=== PATIENT | female | born 1935 | race Caucasian/White ===

== ENCOUNTER → 2018-07-02 | Day surgery (SDC) | payer MEDICARE, OTHER ==
[~2018-07-02] MED LIST: Lactated Ringers 1,000 ML IV SCH; Propofol 200 MG/20 ML SDV IV ONE
--- NOTE | 2018-07-02 10:27 | OR ---
DATE OF OPERATION: 07/02/2018 PREOPERATIVE DIAGNOSIS: 1. HEME-POSITIVE STOOL. 2. WEIGHT LOSS. POSTOPERATIVE DIAGNOSIS: 1. HEME-POSITIVE STOOL. 2. WEIGHT LOSS. SURGEON: Tl Nunez MD PROCEDURE: 1. EGD WITH BIOPSY X4, IRA. 2. FULL-LENGTH COLONOSCOPY. ANESTHESIA: DAY CARE HOME PROVIDER due to advanced age and hyperthyroidism. COMPLICATIONS: None. SPECIMEN: 1. Antral biopsy x2. 2. Fundal biopsy x2. 3. IRA. FINDINGS: 1. Full-length EGD. 2. Diffuse hemorrhagic gastritis. 3. Dxpo-cu-amcigduz sized hiatal hernia without esophagitis or stricturing. 4. Full-length colonoscopy. 5. Moderate sigmoid diverticulosis. 6. Significant internal hemorrhoids. RECOMMENDATIONS: The patient should be placed on proton pump therapy and treated appropriately for her gastritis with close followup with Lety Torres. INDICATIONS: The patient apparently has been having some issues with heme- positive stool and anemia. GI recommended upper and lower endoscopy. DESCRIPTION OF PROCEDURE: The patient was prepped and draped, placed in left lateral decubitus position. A lubricated Olympus gastroscope was inserted over a bit, advanced to the cricopharyngeus area, and easily intubated into the esophagus. Esophageal lining was benign in its entire course. The Z-line was crisp and sharp around 36 cm. Zptn-sl-bhoituod sized hiatal hernia was seen with no spontaneous reflux visualized. There was no distal esophagitis, stricturing, ulceration, or De Leon's changes. The scope was advanced into the stomach through the pylorus and into the second portion of the duodenum. This and the duodenal bulb were unremarkable. The scope was brought back into the stomach and retroflexed. The upper fundus and cardia showed signs of gastritis without any acute bleeding, but appeared to be a resolving hemorrhagic gastritis which extended diffusely to the pylorus. We ended up doing 4 biopsies, 2 in the antrum and 2 in the fundus along with a CLOtest. No other polyps, masses, or lesions were seen. Air was then suctioned from the stomach. The scope was removed without complication. A lubricated Olympus colonoscope was then inserted and relatively easily advanced to the cecum. We were able to directly visualize the ileocecal valve and appendiceal orifice. The bowel prep was fine. Upon withdrawal of the scope, right transverse descending colons were completely unremarkable. The patient has pzny-hk-inmpoctu sigmoid diverticular disease without any inflammatory changes. No active bleeding. There were no signs of polyps, mass, ulceration, or colitis. The rectal vault was benign. Retroflexion showed significant internal hemorrhoids, but no active bleeding. Air was then suctioned, scope removed without complication. MANJU/PEMA /[id number]
== END ==
LOC: CC.SDS 07:39
PROVIDERS: ATTEND Family Medicine
DX: R19.5 Other fecal abnormalities (principal); R63.4 Abnormal weight loss; Z68.23 Body mass index [BMI] 23.0-23.9, adult; K29.50 Unspecified chronic gastritis without bleeding; B96.81 Helicobacter pylori [H. pylori] as the cause of diseases classified elsewhere; K44.9 Diaphragmatic hernia without obstruction or gangrene; K64.8 Other hemorrhoids; K57.30 Diverticulosis of large intestine without perforation or abscess without bleeding; J44.9 Chronic obstructive pulmonary disease, unspecified; I48.91 Unspecified atrial fibrillation; E05.90 Thyrotoxicosis, unspecified without thyrotoxic crisis or storm; Z79.899 Other long term (current) drug therapy
CPT/HCPCS: 43239; 45378; 87081; J2704; J7120; 00813; 88305

== ENCOUNTER 2021-05-03 09:52 | Inpatient (IN) | payer MEDICARE, OTHER ==
[2021-05-03] MEDS ORDERED: Temazepam 15 MG Cap PO PRN (14:15)
[2021-05-03] MEDS ORDERED: Cyclobenzaprine 10 MG Tab PO PRN (14:15)
[2021-05-03] MEDS ORDERED: Ondansetron 4 MG Tab.DIS PO PRN (14:15)
[2021-05-03] MEDS ORDERED: Non-Formulary Medication 1 Each (Methimazole [Methimazole] 5 MG Tablet) PO SCH (14:30)
[2021-05-03] MEDS ORDERED: Polyvinyl Alcohol 1.4% Ophth Soln 15 ML Bottle EYEBOTH PRN (14:59)
[2021-05-03] MEDS: Furosemide 40 MG Tab PO SCH (15:00)
[2021-05-03] MEDS: Acetaminophen/HYDROcodone 325-5 MG Tab PO PRN (15:00)
[2021-05-03] MEDS: Potassium Chloride 10 MEQ Tab.ER PO SCH (17:48)
[2021-05-03] MEDS: Calcium Carbonate/Vitamin D3 1250 MG-5 MCG Tab PO SCH (19:41)
[2021-05-04] MEDS: Acetaminophen/HYDROcodone 325-5 MG Tab PO PRN ×3 (05:23→19:59)
[2021-05-04] MEDS: Pantoprazole 40 MG Tab.CR PO SCH (06:12)
[2021-05-04] MEDS ORDERED: SELENIUM 200 MCG PO SCH (08:00)
[2021-05-04] MEDS: Citalopram 10 MG Tab PO SCH (09:02)
[2021-05-04] MEDS: Metoprolol Succinate 25 MG Tab.ER PO SCH (09:02)
[2021-05-04] MEDS: amLODIPine 10 MG Tab PO SCH (09:03)
[2021-05-04] MEDS: Losartan 100 MG Tab PO SCH (09:03)
[2021-05-04] MEDS: Furosemide 40 MG Tab PO SCH ×2 (09:04→16:46)
[2021-05-04] MEDS: Potassium Chloride 10 MEQ Tab.ER PO SCH ×2 (09:04→16:46)
[2021-05-04] MEDS: Tiotropium Inhaler 18 MCG Inhalation Powder Cap Kit of 5 INH SCH (09:05)
[2021-05-04] MEDS: Warfarin 5 MG Tab PO SCH (12:03)
[2021-05-04] MEDS: Calcium Carbonate/Vitamin D3 1250 MG-5 MCG Tab PO SCH (19:09)
[2021-05-05] MEDS: Pantoprazole 40 MG Tab.CR PO SCH (06:24)
--- NOTE | 2021-05-05 06:35 | PCM.HP.2 ---
H&P History of Present Illness - General Date of Service: 05/03/21 Admit Problem/Dx: Admission Diagnosis/Problem Admission Diagnosis/Problem Status post right hip replacement Source of Information: Patient History Limitations: Reports: No Limitations - History of Present Illness Initial Comments - Free Text/Narative: Rae is an 86 year old female admitted for strengthening following a right [place] [facility] [facility] [place] 3 days following surgery. is ambulating with walk, weight bear as tolerated. Doing very well with stand by assist. Has chronic cough due to COPD. denies chest pain, shortness of breath. Has had good appetite. No bowel or bladder concerns. Bandage was changed earlier today and patient relates wound is "looking good". Duration of Symptoms: Reports: Day(s): Location: Reports: Lower Extremity, Right Quality: Reports: Ache Severity: Mild Improves with: Reports: Medication Worsens with: Reports: Movement Associated Symptoms: Reports: Cough, Weakness. Denies: Confusion, Chest Pain, Diaphoresis, Fever/Chills, Loss of Appetite, Nausea/Vomiting, Shortness of Breath right hip Pain Score (Numeric/FACES): 5 - Related Data Allergies/Adverse Reactions: Allergies Allergy/AdvReac Type Severity Reaction Status Date / Time No Known Allergies Allergy Verified 07/02/18 08:05 Home Medications: Home Meds Calcium Carbonate [Calcium] 600 mg PO BEDTIME 10/15/17 [History] Pantoprazole Sodium 40 mg PO DAILY 10/15/17 [History] Potassium Chloride [K-Tab ER] 40 meq PO BID 10/15/17 [History] Tiotropium [place] [Spiriva Respimat] 2 puff INH DAILY 10/15/17 [History] amLODIPine Besylate [Amlodipine Besylate] 10 mg PO DAILY 10/15/17 [History] Citalopram Hydrobromide [Celexa] 10 mg PO DAILY 06/30/18 [History] Furosemide [Lasix] 40 mg PO BID 06/30/18 [History] Acetaminophen [Tylenol Arthritis Pain] 650 - 1,300 mg PO Q8HR PRN 05/03/21 [History] Carboxymethylcellulose Sodium 1 drop EYEBOTH DAILY PRN 05/03/21 [History] Losartan [Cozaar] 50 mg PO DAILY 05/03/21 [History] Metoprolol Succinate [Toprol Xl] 50 mg PO DAILY 10/22/21 [History] Selenium 200 mcg PO DAILY 05/03/21 [History] methIMAzole [Methimazole] 5 mg PO ASDIRECTED 05/03/21 [History] Past Medical History HEENT History: Reports: Cataract Cardiovascular History: Reports: High Cholesterol, Hypertension Respiratory History: Reports: COPD Gastrointestinal History: Reports: GERD Endocrine/Metabolic History: Reports: Hypokalemia - Past Surgical History HEENT Surgical History: Reports: Eye Surgery GI Surgical History: Reports: Appendectomy, Cholecystectomy Female Surgical History: Reports: Hysterectomy Musculoskeletal Surgical History: Reports: Hip Replacement Social & Family History - Tobacco Use Tobacco Use Status *Q: Former Tobacco User H&P Review of Systems - Review of Systems: Review Of Systems: See Below General: Reports: Weakness. Denies: Fever, Chills, Malaise, Fatigue HEENT: Reports: Rhinitis. Denies: Sinus Congestion, Sore Throat Pulmonary: Reports: Cough. Denies: Shortness of Breath, Wheezing Cardiovascular: Denies: Chest Pain, Edema, Lightheadedness Gastrointestinal: Denies: Abdominal Pain, Constipation, Diarrhea, Nausea, Vomiting Genitourinary: Reports: No Symptoms Musculoskeletal: Reports: Joint Pain Skin: Reports: Other (Incision) Psychiatric: Reports: No Symptoms Neurological: Reports: Weakness Exam - Exam Exam: See Below - Vital Signs Vital Signs: Last Vital Signs Temp 98.9 F 05/04/21 20:00 Pulse 87 05/04/21 20:00 Resp 20 05/04/21 20:00 BP 125/50 L 05/04/21 20:00 Pulse Ox 98 05/04/21 20:00 Weight: 187 lb 4.8 oz - Exam General: Alert, Oriented HEENT: Conjunctiva Clear, Mucosa Moist & [place], Posterior Pharynx Clear Neck: Supple Lungs: Normal Respiratory Effort, Decreased Breath Sounds Cardiovascular: Irregular Rhythm GI/Abdominal Exam: Normal Bowel Sounds, Soft, Non-Tender Back Exam: Normal Inspection Extremities: Limited Range of Motion, Other (tender to right lower extremity) Skin: Incision (bandage intact to right hip, mild redness to skin) Neuro Extensive - Mental Status: Alert, Oriented x3 - Patient Data Lab Results Last 24 hrs: Laboratory Results - last 24 hr 05/04/21 Range/Units 07:10 PT 12.7 H (9.7-12.3) SEC INR 1.18 (0.92-1.18) Sepsis Event Note - Evaluation Sepsis Screening Result: No Definite Risk - Focused Exam Vital Signs: Vital Signs Temp Pulse Resp BP Pulse Ox 05/04/21 20:00 98.9 F 87 20 125/50 L 98 - Problem List (1) Status post hip replacement SNOMED Code(s): 470439912, 333716603, 281053350 ICD Code: Z96.649 - PRESENCE OF UNSPECIFIED ARTIFICIAL HIP JOINT Status: Acute Priority: High Current Visit: Yes Qualifiers: Laterality: right Qualified Code(s): Z96.641 - Presence of right artificial hip joint Problem List Initiated/Reviewed/Updated: Yes Orders Last 24hrs: Active Orders 24 hr Category Date Time Status INR,PT,PROTHROMBIN TIME [COAG] Routine Lab 05/06/21 05:11 Ordered Citalopram [Celexa] Med 05/04/21 08:00 Active 10 mg PO DAILY Losartan [Cozaar] Med 05/04/21 08:00 Active 50 mg PO DAILY Metoprolol Succinate [Toprol XL] Med 05/04/21 08:00 Active 50 mg PO DAILY Pantoprazole [ProTONIX] Med 05/04/21 07:00 Active 40 mg PO ACBREAKFAST Tiotropium [Spiriva HandiHaler] Med 05/04/21 08:00 Active 0 mcg INH DAILY Warfarin [Coumadin] Med 05/04/21 12:00 Active 5 mg PO DAILY@1200 amLODIPine [Norvasc] Med 05/04/21 08:00 Active 10 mg PO DAILY Medication Orders Hydrocodone Bitart/Acetaminophen (Acetaminophen/Hydrocodone 325-5 Mg Tab) 1 - 2 tab PO Q4H PRN PRN Reason: Pain (moderate 4-6) Last Admin: 05/04/21 19:59 Dose: 1 tab Documented by: Admin: 05/04/21 12:03 Dose: 1 tab Documented by: Admin: 05/04/21 05:23 Dose: 1 tab Documented by: Admin: 05/03/21 15:00 Dose: 1 tab Documented by: JACKSON Amlodipine Besylate (Amlodipine 10 Mg Tab) 10 mg PO DAILY KATT Last Admin: 05/04/21 09:03 Dose: 10 mg Documented by: CLAIRE Artificial Tears (Polyvinyl Alcohol 1.4% Ophth Soln 15 Ml Bottle) 0 ml EYEBOTH DAILY PRN PRN Reason: Dry Eyes Calcium Carbonate (Calcium Carbonate/Vitamin D3 1250 Mg-5 Mcg Tab) 1 tab PO BEDTIME [facility] Last Admin: 05/04/21 19:09 Dose: 1 tab Documented by: Admin: 05/03/21 19:41 Dose: 1 tab Documented by: JAMES Citalopram Hydrobromide (Citalopram 10 Mg Tab) 10 mg PO DAILY [facility] Last Admin: 05/04/21 09:02 Dose: 10 mg Documented by: CLAIRE Cyclobenzaprine HCl (Cyclobenzaprine 10 Mg Tab) 10 mg PO BEDTIME PRN PRN Reason: Muscle Spasm - Painful Furosemide (Furosemide 40 Mg Tab) 40 mg PO BIDDIURETIC [facility] Last Admin: 05/04/21 16:46 Dose: 40 mg Documented by: Admin: 05/04/21 09:04 Dose: 40 mg Documented by: Admin: 05/03/21 15:00 Dose: 40 mg Documented by: JACKSON Losartan Potassium (Losartan 100 Mg Tab) 50 mg PO DAILY [facility] Last Admin: 05/04/21 09:03 Dose: 50 mg Documented by: CLAIRE Metoprolol Succinate (Metoprolol Succinate 25 Mg Tab.Er) 50 mg PO DAILY [facility] Last Admin: 05/04/21 09:02 Dose: 50 mg Documented by: CLAIRE Non-Formulary Medication (Methimazole [Methimazole]) 5 mg PO ASDIRECTED [facility] Ondansetron HCl (Ondansetron 4 Mg Tab.Dis) 4 mg PO Q4H PRN PRN Reason: nausea, able to take PO Pantoprazole Sodium (Pantoprazole 40 Mg Tab.Cr) 40 mg PO ACBREAKFAST [facility] Last Admin: 05/05/21 06:24 Dose: 40 mg Documented by: Admin: 05/04/21 06:12 Dose: 40 mg Documented by: JAMES Potassium Chloride (Potassium Chloride 10 Meq Tab.Er) 40 meq PO BIDMEALS [facility] Last Admin: 05/04/21 16:46 Dose: 40 meq Documented by: Admin: 05/04/21 09:04 Dose: 40 meq Documented by: Admin: 05/03/21 17:48 Dose: 40 meq Documented by: CLAIRE Temazepam (Temazepam 15 Mg Cap) 15 mg PO BEDTIME PRN PRN Reason: Sleep Tiotropium [place] (Tiotropium Inhaler 18 Mcg Inhalation Powder Cap Kit Of 5) 0 mcg INH DAILY [facility] Last Admin: 05/04/21 09:05 Dose: 2 puff Documented by: CLAIRE Warfarin Sodium (Warfarin 5 Mg Tab) 5 mg PO DAILY@1200 [facility] Last Admin: 05/04/21 12:03 Dose: 5 mg Documented by: CLAIRE Assessment/Plan Comment:: Right total hip replacement Plan: PT for strengthening. Monitor pain. Wound care with daily dressing changes. - Mortality Measure Prognosis:: Good
[2021-05-05] MEDS: Potassium Chloride 10 MEQ Tab.ER PO SCH ×2 (08:01→16:58)
[2021-05-05] MEDS: Furosemide 40 MG Tab PO SCH ×2 (08:01→16:58)
[2021-05-05] MEDS: amLODIPine 10 MG Tab PO SCH (08:02)
[2021-05-05] MEDS: Metoprolol Succinate 25 MG Tab.ER PO SCH (08:02)
[2021-05-05] MEDS: Acetaminophen/HYDROcodone 325-5 MG Tab PO PRN ×3 (08:03→21:07)
[2021-05-05] MEDS: Citalopram 10 MG Tab PO SCH (08:03)
[2021-05-05] MEDS: Losartan 100 MG Tab PO SCH (08:04)
[2021-05-05] MEDS: Tiotropium Inhaler 18 MCG Inhalation Powder Cap Kit of 5 INH SCH (08:07)
[2021-05-05] MEDS: Warfarin 5 MG Tab PO SCH (12:01)
[2021-05-05] MEDS: Calcium Carbonate/Vitamin D3 1250 MG-5 MCG Tab PO SCH (19:13)
[2021-05-06] MEDS: Acetaminophen/HYDROcodone 325-5 MG Tab PO PRN ×3 (04:58→20:07)
[2021-05-06] MEDS: Pantoprazole 40 MG Tab.CR PO SCH (06:51)
[2021-05-06] MEDS: amLODIPine 10 MG Tab PO SCH (07:50)
[2021-05-06] MEDS: Potassium Chloride 10 MEQ Tab.ER PO SCH ×2 (07:50→17:58)
[2021-05-06] MEDS: Losartan 100 MG Tab PO SCH (07:50)
[2021-05-06] MEDS: Furosemide 40 MG Tab PO SCH ×2 (07:50→17:59)
[2021-05-06] MEDS: Metoprolol Succinate 25 MG Tab.ER PO SCH (07:51)
[2021-05-06] MEDS: Citalopram 10 MG Tab PO SCH (07:51)
[2021-05-06] MEDS: Tiotropium Inhaler 18 MCG Inhalation Powder Cap Kit of 5 INH SCH (07:52)
[2021-05-06] MEDS: SELENIUM 200 MCG PO SCH (11:32)
[2021-05-06] MEDS: Warfarin 5 MG Tab PO SCH (11:32)
[2021-05-06] MEDS ORDERED: Furosemide 40 MG Tab PO ONE (18:00)
[2021-05-06] MEDS: Calcium Carbonate/Vitamin D3 1250 MG-5 MCG Tab PO SCH (20:07)
[2021-05-07] MEDS: Pantoprazole 40 MG Tab.CR PO SCH (06:08)
[2021-05-07] MEDS ORDERED: METHIMAZOLE 5 MG PO SCH (08:00)
[2021-05-07] MEDS: Acetaminophen/HYDROcodone 325-5 MG Tab PO PRN (08:23)
[2021-05-07] MEDS: Furosemide 40 MG Tab PO SCH (08:25)
[2021-05-07] MEDS: Losartan 100 MG Tab PO SCH (08:25)
[2021-05-07] MEDS: amLODIPine 10 MG Tab PO SCH (08:25)
[2021-05-07] MEDS: Potassium Chloride 10 MEQ Tab.ER PO SCH (08:26)
[2021-05-07] MEDS: Metoprolol Succinate 25 MG Tab.ER PO SCH (08:26)
[2021-05-07] MEDS: Citalopram 10 MG Tab PO SCH (08:26)
[2021-05-07] MEDS: SELENIUM 200 MCG PO SCH (08:27)
[2021-05-07] MEDS: Tiotropium Inhaler 18 MCG Inhalation Powder Cap Kit of 5 INH SCH (08:27)
[2021-05-07] MEDS: Warfarin 5 MG Tab PO SCH (13:19)
--- NOTE | 2021-05-07 13:49 | DISCH ---
Discharge from swing bed. ADMISSION DIAGNOSES: Swing bed placement, status post total right hip arthroplasty. DISCHARGE DIAGNOSIS: 1. STATUS POST TOTAL HIP ARTHROPLASTY, RIGHT. 2. HYPERTENSION. 3. DEPRESSION. HISTORY: The patient is an 86-year-old female who underwent elective right total hip arthroplasty without any complication. She was sent to [place] for swing bed for strengthening with PT. HOSPITAL COURSE: The patient did well while here, had no complications, and progressed nicely to the point where she was up and ambulating on her own. Has controlled pain with p.r.n. [place] and has had no complications during her stay. She looks clinically stable for discharge home, and she will follow up with Lety Torres in the next 2 weeks for routine recheck. COMPLICATIONS: During her stay were none. CONSULTATIONS: PT. DISPOSITION: Discharged home. [facility] /[id number]
== END 2021-05-07 13:34 | disposition home or self-care (01) | DRG 561 ==
LOC: CC.MS 11:07 → UNDOADMIN 11:07 → CC.MS 13:27
PROVIDERS: ADMIT Physician Assistant Medical; ATTEND Family Medicine
DX: Z47.1 Aftercare following joint replacement surgery (principal); Z96.641 Presence of right artificial hip joint; I10 Essential (primary) hypertension; F32.A Depression, unspecified; E78.00 Pure hypercholesterolemia, unspecified; J44.9 Chronic obstructive pulmonary disease, unspecified; K21.9 Gastro-esophageal reflux disease without esophagitis; Z87.891 Personal history of nicotine dependence; Z90.49 Acquired absence of other specified parts of digestive tract; Z90.710 Acquired absence of both cervix and uterus; Z79.899 Other long term (current) drug therapy; Z98.49 Cataract extraction status, unspecified eye
CPT/HCPCS: 36415; 85610; 90686; 97110-GP; 97161-GP; A9270-GY; G0008

== ENCOUNTER 2021-06-30 10:15 | Emergency (ER) | payer MEDICARE, OTHER ==
--- NOTE | 2021-06-30 10:50 | EDM.PDOC ---
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) (none) Lower Back Pain Score (Numeric/FACES): 6 - Related Data Allergies Allergy/AdvReac Type Severity Reaction Status Date / Time No Known Allergies Allergy Verified 06/30/21 10:20 Home Meds: Home Meds Calcium Carbonate [Calcium] 600 mg PO BEDTIME 10/15/17 [History] Pantoprazole Sodium 40 mg PO DAILY 10/15/17 [History] Potassium Chloride [K-Tab ER] 40 meq PO BID 10/15/17 [History] Tiotropium [place] [Spiriva Respimat] 2 puff INH DAILY 10/15/17 [History] amLODIPine Besylate [Amlodipine Besylate] 10 mg PO DAILY 10/15/17 [History] Citalopram Hydrobromide [Celexa] 10 mg PO DAILY 06/30/18 [History] Furosemide [Lasix] 40 mg PO BID 06/30/18 [History] Carboxymethylcellulose Sodium 1 drop EYEBOTH DAILY PRN 05/03/21 [History] Losartan [Cozaar] 50 mg PO DAILY 05/03/21 [History] Metoprolol Succinate [Toprol Xl] 50 mg PO DAILY 05/03/21 [History] Selenium 200 mcg PO DAILY 05/03/21 [History] methIMAzole [Methimazole] 5 mg PO ASDIRECTED 05/03/21 [History] Hydrocodone/Acetaminophen [HYDROcodone-Acetaminophen 5-325 MG] 1 each PO Q6HR #30 tab 05/07/21 [Rx] Warfarin [Coumadin] 5 mg PO DAILY@1200 #90 tablet 05/07/21 [Rx] Past Medical History HEENT History: Reports: Cataract Cardiovascular History: Reports: High Cholesterol, Hypertension Respiratory History: Reports: COPD Gastrointestinal History: Reports: GERD Endocrine/Metabolic History: Reports: Hypokalemia - Past Surgical History HEENT Surgical History: Reports: Eye Surgery GI Surgical History: Reports: Appendectomy, Cholecystectomy Female Surgical History: Reports: Hysterectomy Musculoskeletal Surgical History: Reports: Hip Replacement Social & Family History - Family History Family Medical History: No Pertinent Family History - Tobacco Use Tobacco Use Status *Q: Never Tobacco User Second Hand Smoke Exposure: No ED ROS GENERAL - Review of Systems Review Of Systems: Comprehensive ROS is negative, except as noted in HPI. ED EXAM, GENERAL - Physical Exam Exam: See Below Exam Limited By: No Limitations General Appearance: Alert, No Apparent Distress Head: Atraumatic, Normocephalic Neck: Normal Inspection, Supple, Non-Tender, Full Range of Motion Respiratory/Chest: No Respiratory Distress, Lungs Clear, Normal Breath Sounds, No Accessory Muscle Use, Chest Non-Tender Cardiovascular: Normal Peripheral Pulses, Regular Rate, Rhythm, No Edema GI/Abdominal: Normal Bowel Sounds, Soft, Non-Tender, No Distention Back Exam: Other (no cva tenderness) Extremities: Normal Range of Motion, Non-Tender, Normal Capillary Refill Neurological: Alert, Oriented, No Motor/Sensory Deficits Psychiatric: Normal Affect, Normal Mood Skin Exam: Warm, Dry, Intact, Normal Color, No Rash Lymphatic: No Adenopathy Course - Vital Signs Last Recorded V/S: Last Vital Signs Temp 97.1 F 06/30/21 10:27 Pulse 82 06/30/21 10:27 Resp 18 06/30/21 10:27 BP 151/69 H 06/30/21 10:27 Pulse Ox 99 06/30/21 10:27 - Orders/Labs/Meds Orders: Active Orders 24 hr Category Date Time Status CULTURE URINE [RM] Stat Lab 06/30/21 11:06 Received Labs: Laboratory Tests 06/30/21 Range/Units 11:06 Urine Color Light yellow (YELLOW) Urine Appearance Cloudy (CLEAR) Urine pH 5.0 (4.5-8.0) Ur Specific [place] 1.010 (1.003-1.020) Urine Protein Negative (NEGATIVE) mg/dL Urine Glucose (UA) Negative (NEGATIVE) mg/dL Urine Ketones Negative (NEGATIVE) mg/dL Urine Occult Blood Small H (NEGATIVE) Urine Nitrite Negative (NEGATIVE) Urine Bilirubin Negative (NEGATIVE) Urine Urobilinogen 0.2 (0.2-1.0) EU/dL Ur Leukocyte Esterase Large H (NEGATIVE) Urine RBC 5-10 H (0-5) /HPF Urine WBC Packed H (0-5) /HPF Ur Epithelial Cells Rare (NOT SEEN) /HPF Urine Bacteria Many H (NOT SEEN) /HPF Urinalysis Comment Meds: Medications Discontinued Medications Generic Name Dose Route Start Last Admin Trade Name Freq PRN Reason Stop Dose Admin Nitrofurantoin Macrocrystals 1 packet 06/30/21 11:35 Take Home: Nitrofurantoin Monohydrate/Macrocrystalline 100 Mg, 2 Cap Pack PO 06/30/21 11:36 ONETIME ONE - Re-Assessments/Exams Free Text/Narrative Re-Assessment/Exam: 06/30/21 10:49 Attempted to give urine specimen but stated that she missed the collection device. Will give po fluids and wait until she can void again. Departure - Departure Time of Disposition: 11:45 Disposition: Home, Self-Care 01 Condition: Good Clinical Impression: UTI, Urinary tract infectious disease - Discharge Information Instructions: Urinary Tract Infection, Adult, [id number] Forms: ED Department Discharge Additional Instructions: Lots of fluids. Medications as prescribed. Follow up with Primary Care Pr ovider if condition worsens or does not resolve. Sepsis Event Note (ED) - Evaluation Sepsis Screening Result: No Definite Risk - Focused Exam Vital Signs: Vital Signs Temp Pulse Resp BP Pulse Ox 06/30/21 10:27 97.1 F 82 18 151/69 H 99 - Problem List & Annotations (1) UTI (urinary tract infection) SNOMED Code(s): 58672609 Code(s): N39.0 - URINARY TRACT INFECTION, SITE NOT SPECIFIED Status: Acute Current Visit: Yes - Problem List Review Problem List Initiated/Reviewed/Updated: Yes - My Orders Last 24 Hours: My Active Orders 06/30/21 11:06 CULTURE URINE [RM] Stat - Assessment/Plan Last 24 Hours: My Active Orders 06/30/21 11:06 CULTURE URINE [RM] Stat
[2021-06-30] MEDS: Take Home: Nitrofurantoin Monohydrate/Macrocrystalline 100 MG, 2 Cap Pack PO ONE (11:57)
== END 2021-06-30 12:10 | disposition home or self-care (01) ==
LOC: CC.ED 10:15
DX: N39.0 Urinary tract infection, site not specified (principal); I10 Essential (primary) hypertension; J44.9 Chronic obstructive pulmonary disease, unspecified; K21.9 Gastro-esophageal reflux disease without esophagitis; Z79.899 Other long term (current) drug therapy
CPT/HCPCS: 81001; 87086; 87088; 87186; 99284; A9270

== ENCOUNTER 2022-09-28 13:13 | Emergency (ER) | payer MEDICARE, OTHER ==
[2022-09-28] MEDS: Sodium Chloride 0.9% 500 ML IV SCH (15:15)
[2022-09-28] MEDS: Take Home: Ondansetron 4 MG Tab.DIS, 2 Tab Pack PO ONE (16:08)
[2022-09-28 16:26] VITALS: BP 131/54; PULSE 79
== END 2022-09-28 16:27 | disposition home or self-care (01) ==
LOC: CC.ED 13:13
DX: A08.4 Viral intestinal infection, unspecified (principal); I10 Essential (primary) hypertension; J44.9 Chronic obstructive pulmonary disease, unspecified; K21.9 Gastro-esophageal reflux disease without esophagitis; Z79.899 Other long term (current) drug therapy; Z79.01 Long term (current) use of anticoagulants; Z90.49 Acquired absence of other specified parts of digestive tract; Z87.891 Personal history of nicotine dependence; Z20.822 Contact with and (suspected) exposure to COVID-19
CPT/HCPCS: 36415; 80053; 81001; 82150; 83690; 85025; 87086; 87804; 99284; A9270-GY; J7040; U0002

== ENCOUNTER 2023-08-19 18:49 | Emergency (ER) | payer MEDICARE, OTHER ==
[2023-08-19] MEDS: Acetaminophen 500 MG Tab PO STA (21:07)
== END 2023-08-19 21:20 | disposition home or self-care (01) ==
LOC: CC.ED 18:49
DX: S42.212A Unspecified displaced fracture of surgical neck of left humerus, initial encounter for closed fracture (principal); I10 Essential (primary) hypertension; E78.00 Pure hypercholesterolemia, unspecified; J44.9 Chronic obstructive pulmonary disease, unspecified; K21.9 Gastro-esophageal reflux disease without esophagitis; Z90.49 Acquired absence of other specified parts of digestive tract; Z90.710 Acquired absence of both cervix and uterus; Z79.01 Long term (current) use of anticoagulants; Z79.899 Other long term (current) drug therapy; W19.XXXA Unspecified fall, initial encounter
CPT/HCPCS: 29105; 73030-LT; 73060-LT; 99283; A9270-GY

== ENCOUNTER 2024-06-11 15:21 | Emergency (ER) | payer MEDICARE, OTHER ==
[2024-06-11] MEDS ORDERED: Acetaminophen 325 MG Tab PO ONE (16:15)
== END 2024-06-11 17:40 | disposition home or self-care (01) ==
LOC: CC.ED 15:21
DX: S62.316A Displaced fracture of base of fifth metacarpal bone, right hand, initial encounter for closed fracture (principal); I10 Essential (primary) hypertension; K21.9 Gastro-esophageal reflux disease without esophagitis; J44.9 Chronic obstructive pulmonary disease, unspecified; Z90.49 Acquired absence of other specified parts of digestive tract; Z90.710 Acquired absence of both cervix and uterus; Z79.899 Other long term (current) drug therapy; W19.XXXA Unspecified fall, initial encounter
CPT/HCPCS: 29125; 73110-RT; 99283-25

== ENCOUNTER 2024-07-08 15:34 | Emergency (ER) | payer MEDICARE, OTHER ==
[2024-07-08] MEDS: Lidocaine 4% 1 each Patch TOP STA (16:40)
== END 2024-07-08 16:49 | disposition home or self-care (01) ==
LOC: CC.ED 15:34
DX: S20.211A Contusion of right front wall of thorax, initial encounter (principal); I10 Essential (primary) hypertension; J44.9 Chronic obstructive pulmonary disease, unspecified; K21.9 Gastro-esophageal reflux disease without esophagitis; Z90.49 Acquired absence of other specified parts of digestive tract; Z90.710 Acquired absence of both cervix and uterus; Z96.649 Presence of unspecified artificial hip joint; Z79.01 Long term (current) use of anticoagulants; Z79.899 Other long term (current) drug therapy; W19.XXXA Unspecified fall, initial encounter
CPT/HCPCS: 71101-RT; 99283; A9270-GY

== ENCOUNTER 2024-07-10 07:40 | Emergency (ER) | payer MEDICARE, OTHER ==
[2024-07-10 08:01] LABS: BASOPHILS ABSOLUTE AUTO 0.01 10^3/uL (0.00-0.50); BASOPHILS PERCENT AUTO 0.2 % (0-1); EOSINOPHILS ABSOLUTE AUTO 0.29 10^3/uL (0.00-1.50); HEMATOCRIT 34.4 % (37.0-47.0); IMMATURE GRAN ABSOLUTE AUTO 0.05 10^3/uL (0.00-0.49); LYMPHOCYTES ABSOLUTE AUTO 1.34 10^3/uL (0.60-5.00); LYMPHOCYTES PERCENT AUTO 27.5 % (24-44); MEAN CORPUSCULAR HEMOGLOBIN 29.4 pg (27.0-32.0); MONOCYTES ABSOLUTE AUTO 0.75 10^3/uL (0.00-1.50); MONOCYTES PERCENT AUTO 15.4 % (0-10); NEUTROPHILS ABSOLUTE AUTO 2.43 x10^3/uL (1.80-8.00); NEUTROPHILS PERCENT AUTO 49.9 % (41-71); PLATELET COUNT,PLT 224 10^3/uL (150-400); RED BLOOD CELL COUNT 3.74 x10^6/uL (4.00-5.50); WHITE BLOOD CELL COUNT,WBC 4.9 10^3/uL (4.0-11.0)
[2024-07-10 08:44] LABS: ALANINE AMINOTRANSFERASE,ALT 32 U/L (12-78); ALBUMIN 3.4 g/dL (3.4-5.0); ALKALINE PHOSPHATASE 155 U/L (46-116); ASPARTATE AMNIOTRANSFERASE,AST 20 U/L (15-37); BILIRUBIN TOTAL 0.6 mg/dL (0.0-1.0); BLOOD UREA NITROGEN,BUN 20 mg/dL (7-18); CALCIUM 8.9 mg/dL (8.4-10.1); CARBON DIOXIDE,CO2 27 mmol/L (21-32); CHLORIDE,CL 99 mEq/L (98-106); CREATININE 1.5 mg/dL (0.6-1.0); GLUCOSE RANDOM 103 mg/dL (75-99); SODIUM,NA 138 mEq/L (136-145)
[2024-07-10 08:45] LABS: ESTIMATED GFR 33 mL/min (>=60)
[2024-07-10 08:46] LABS: PROTHROMBIN TIME 55.7 SEC (9.3-11.3)
[2024-07-10] MEDS: Ondansetron 4 MG/2 ML SDV IVPUSH STA (08:52)
[2024-07-10] MEDS: fentaNYL 50 MCG/ML SDV IVPUSH ONE ×2 (08:52→11:06)
[2024-07-10 08:58] LABS: MAGNESIUM 1.7 mg/dL (1.8-2.4)
[2024-07-10 09:23] LABS: APPEARANCE,URINE CLEAR (CLEAR); BILIRUBIN,URINE NEGATIVE (NEGATIVE); COLOR,URINE YELLOW (YELLOW); GLUCOSE,URINE NEGATIVE (NEGATIVE); KETONES,URINE NEGATIVE (NEGATIVE); LEUKOCYTE ESTERASE,URINE NEGATIVE (NEGATIVE); NITRITE,URINE NEGATIVE (NEGATIVE); PH,URINE 5.5 (4.5-8.0); PROTEIN,URINE 30 mg/dL (NEGATIVE); UROBILINOGEN,URINE 0.2 EU/dL (0.2-1.0)
[2024-07-10 09:29] LABS: OCCULT BLOOD,URINE NEGATIVE (NEGATIVE); RBC,URINE NOT SEEN /HPF (0-5); WBC,URINE NOT SEEN /HPF (0-5)
[2024-07-10 09:30] LABS: BACTERIA,URINE NOT SEEN /HPF (NOT SEEN); EPITHELIAL CELLS,URINE NOT SEEN /HPF (NOT SEEN); MUCUS,URINE RARE /HPF (NOT SEEN)
[2024-07-10 09:43] LABS: INR 5.76 (0.92-1.18)
[2024-07-10] MEDS: Phytonadione 5 MG Tab PO ONE (10:19)
== END 2024-07-10 11:30 ==
LOC: CC.ED 07:40
DX: S72.002A Fracture of unspecified part of neck of left femur, initial encounter for closed fracture (principal); R79.1 Abnormal coagulation profile; I10 Essential (primary) hypertension; J44.9 Chronic obstructive pulmonary disease, unspecified; K21.9 Gastro-esophageal reflux disease without esophagitis; Z79.01 Long term (current) use of anticoagulants; Z79.899 Other long term (current) drug therapy; Z90.49 Acquired absence of other specified parts of digestive tract; Z90.710 Acquired absence of both cervix and uterus; W01.0XXA Fall on same level from slipping, tripping and stumbling without subsequent striking against object, initial encounter
CPT/HCPCS: 36415; 71045; 72170; 73030-LT; 80053; 81001; 83735; 84484; 85025; 85610; 85730; 93005; 93010; 96374; 96375; 96376; 99284; 99285-25; A9270-GY; J2405; J3010

== ENCOUNTER 2024-12-17 13:10 | Emergency (ER) | payer MEDICARE, OTHER ==
[2024-12-17] MEDS ORDERED: Sodium Chloride 0.9% 10 ML Syringe FLUSH PRN (13:12)
[2024-12-17 14:01] LABS: BASOPHILS ABSOLUTE AUTO 0.01 10^3/uL (0.00-0.50); BASOPHILS PERCENT AUTO 0.2 % (0-1); EOSINOPHILS ABSOLUTE AUTO 0.21 10^3/uL (0.00-1.50); EOSINOPHILS PERCENT AUTO 3.9 % (0-6); HEMATOCRIT 32.4 % (37.0-47.0); HEMOGLOBIN 10.6 g/dL (12.0-16.0); IMMATURE GRAN ABSOLUTE AUTO 0.04 10^3/uL (0.00-0.49); IMMATURE GRAN PERCENT AUTO 0.8 % (0.0-4.9); LYMPHOCYTES ABSOLUTE AUTO 1.12 10^3/uL (0.60-5.00); LYMPHOCYTES PERCENT AUTO 21.1 % (24-44); MEAN CORPUSCULAR HEMOGLOBIN 30.3 pg (27.0-32.0); MEAN CORPUSCULAR HGB CONC 32.7 g/dL (32.0-36.0); MEAN CORPUSCULAR VOLUME 92.6 fL (83.0-97.0); MONOCYTES PERCENT AUTO 9.4 % (0-10); NEUTROPHILS ABSOLUTE AUTO 3.44 x10^3/uL (1.80-8.00); NEUTROPHILS PERCENT AUTO 64.6 % (41-71); PLATELET COUNT,PLT 196 10^3/uL (150-400); WHITE BLOOD CELL COUNT,WBC 5.3 10^3/uL (4.0-11.0)
[2024-12-17 14:14] LABS: ALANINE AMINOTRANSFERASE,ALT 19 U/L (12-78); ALBUMIN 3.7 g/dL (3.4-5.0); ALKALINE PHOSPHATASE 96 U/L (46-116); ASPARTATE AMNIOTRANSFERASE,AST 16 U/L (15-37); BILIRUBIN TOTAL 0.5 mg/dL (0.0-1.0); BLOOD UREA NITROGEN,BUN 23 mg/dL (7-18); C-REACTIVE PROTEIN < 0.50 mg/dL (<=0.50); CALCIUM 8.8 mg/dL (8.4-10.1); CARBON DIOXIDE,CO2 24 mmol/L (21-32); CHLORIDE,CL 98 mEq/L (98-106); CREATININE 1.5 mg/dL (0.6-1.0); ESTIMATED GFR 33 mL/min (>=60); GLUCOSE RANDOM 118 mg/dL (75-99); POTASSIUM,K 3.5 mEq/L (3.5-5.0); PROTEIN TOTAL,TP 6.9 g/dL (6.4-8.2); SODIUM,NA 136 mEq/L (136-145)
[2024-12-17 14:19] LABS: INR 2.26 (0.92-1.18); PROTHROMBIN TIME 22.2 SEC (9.3-11.3)
[2024-12-17] MEDS: HYDROmorphone 0.5 MG/0.5 ML Syringe IVPUSH ONE ×2 (14:43→15:20)
[2024-12-17] MEDS: Diphtheria/Tetanus Toxoids,Adult (Td) 0.5 ML Syringe IM ONE (15:20)
[2024-12-17] MEDS: fentaNYL 50 MCG/ML SDV IVPUSH ONE (16:57)
== END 2024-12-17 17:15 ==
LOC: CC.ED 13:10
DX: S72.492A Other fracture of lower end of left femur, initial encounter for closed fracture (principal); S01.01XA Laceration without foreign body of scalp, initial encounter; Z23 Encounter for immunization; I10 Essential (primary) hypertension; E78.00 Pure hypercholesterolemia, unspecified; J44.9 Chronic obstructive pulmonary disease, unspecified; K21.9 Gastro-esophageal reflux disease without esophagitis; Z90.49 Acquired absence of other specified parts of digestive tract; Z90.710 Acquired absence of both cervix and uterus; Z79.899 Other long term (current) drug therapy; W01.0XXA Fall on same level from slipping, tripping and stumbling without subsequent striking against object, initial encounter
CPT/HCPCS: 12001; 36415; 70450; 71045; 80053; 85025; 85610; 86140; 90471; 90714; 93005; 96374; 96375; 96376; 99285-25; J3010

== ENCOUNTER 2024-12-23 12:29 | Inpatient (IN) | payer MEDICARE, OTHER ==
[2024-12-23] MEDS ORDERED: Acetaminophen 325 MG Tab PO PRN (14:06)
[2024-12-23] MEDS ORDERED: Ondansetron 4 MG Tab.DIS PO PRN (14:06)
[2024-12-23] MEDS ORDERED: Polyethylene Glycol 3350 Powder 17 GM Packet PO PRN (14:06)
[2024-12-23] MEDS ORDERED: Docusate Sodium 100 MG Cap PO PRN (14:06)
[2024-12-23] MEDS ORDERED: Furosemide 40 MG Tab PO PRN (14:08)
[2024-12-23] MEDS ORDERED: Tiotropium Bromide 4 GM Inhalation Spray (2.5mcg/1 dose; 10 doses) INH PRN (14:08)
[2024-12-23] MEDS ORDERED: Loperamide 2 MG Cap PO PRN (14:08)
[2024-12-23] MEDS ORDERED: LENALIDOMIDE 10 MG PO SCH (14:15)
[2024-12-23 14:36] LABS: INR 1.66 (0.92-1.18); PROTHROMBIN TIME 16.6 SEC (9.3-11.3)
[2024-12-23] MEDS ORDERED: Hypromellose 0.3% Ophth Soln 15 ML Bottle EYEBOTH PRN (14:55)
[2024-12-23] MEDS: Acetaminophen/HYDROcodone 325-5 MG Tab PO PRN (15:10)
[2024-12-23] MEDS ORDERED: CEFUROXIME AXETIL 500 MG PO SCH (20:00)
[2024-12-23] MEDS: Calcium Carbonate 500 MG Tab.Chew PO SCH (20:12)
[2024-12-23] MEDS: Sennosides/Docusate Sodium 50-8.6 MG Tab PO SCH (20:12)
[2024-12-23] MEDS: Acyclovir 200 MG Cap PO SCH (20:13)
[2024-12-23] MEDS: Potassium Chloride 20 MEQ Tab.ER PO SCH (20:13)
[2024-12-23] MEDS: Warfarin 5 MG Tab PO SCH (20:16)
[2024-12-24] MEDS: Ferrous Sulfate 324 MG Tab.EC PO SCH (06:41)
[2024-12-24] MEDS: Pantoprazole 40 MG Tab.CR PO SCH (06:41)
[2024-12-24] MEDS: Cyanocobalamin (Vitamin B12) 1,000 MCG Tab PO SCH (07:33)
[2024-12-24] MEDS: Tamsulosin 0.4 MG Cap.ER PO SCH (07:33)
[2024-12-24] MEDS: amLODIPine 2.5 MG Tab PO SCH (07:45)
[2024-12-24] MEDS: Metoprolol Succinate 25 MG Tab.ER PO SCH (07:46)
[2024-12-24] MEDS ORDERED: Warfarin 5 MG Tab PO SCH (12:00)
[2024-12-24] MEDS ORDERED: Sennosides/Docusate Sodium 50-8.6 MG Tab PO PRN (20:27)
[2024-12-25] MEDS: Metoprolol Succinate 25 MG Tab.ER ONE (08:21)
[2024-12-26] MEDS: traMADol 50 MG Tab PO PRN (01:27)
[2024-12-26] MEDS: Sulfamethoxazole/Trimethoprim 800-160 MG Tab PO SCH (12:18)
[2024-12-26 16:34] LABS: BASOPHILS ABSOLUTE AUTO 0.02 10^3/uL (0.00-0.50); BASOPHILS PERCENT AUTO 0.3 % (0-1); EOSINOPHILS ABSOLUTE AUTO 0.26 10^3/uL (0.00-1.50); HEMATOCRIT 28.1 % (37.0-47.0); IMMATURE GRAN ABSOLUTE AUTO 0.06 10^3/uL (0.00-0.49); IMMATURE GRAN PERCENT AUTO 0.9 % (0.0-4.9); LYMPHOCYTES ABSOLUTE AUTO 1.13 10^3/uL (0.60-5.00); LYMPHOCYTES PERCENT AUTO 17.5 % (24-44); MEAN CORPUSCULAR HEMOGLOBIN 29.9 pg (27.0-32.0); MEAN CORPUSCULAR VOLUME 93.4 fL (83.0-97.0); MONOCYTES ABSOLUTE AUTO 1.74 10^3/uL (0.00-1.50); NEUTROPHILS ABSOLUTE AUTO 3.24 x10^3/uL (1.80-8.00); NEUTROPHILS PERCENT AUTO 50.3 % (41-71); PLATELET COUNT,PLT 237 10^3/uL (150-400); RED BLOOD CELL COUNT 3.01 x10^6/uL (4.00-5.50); WHITE BLOOD CELL COUNT,WBC 6.5 10^3/uL (4.0-11.0)
[2024-12-26 16:55] LABS: ALBUMIN 2.4 g/dL (3.4-5.0); BILIRUBIN TOTAL 0.6 mg/dL (0.0-1.0); CREATININE 1.1 mg/dL (0.6-1.0); EST CRCL DRUG DOSING (CG) 31.2 mL/min; POTASSIUM,K 5.7 mEq/L (3.5-5.0); PROTEIN TOTAL,TP 6.2 g/dL (6.4-8.2)
[2024-12-27] MEDS ORDERED: [UNRECOGNIZED DRUG - REMARK] SCH (14:15)
[2024-12-28 07:56] LABS: ALBUMIN 2.7 g/dL (3.4-5.0); BILIRUBIN TOTAL 0.7 mg/dL (0.0-1.0); CALCIUM 9.1 mg/dL (8.4-10.1); EST CRCL DRUG DOSING (CG) 34.32 mL/min; POTASSIUM,K 4.5 mEq/L (3.5-5.0); PROTEIN TOTAL,TP 6.5 g/dL (6.4-8.2)
[2024-12-28 08:10] LABS: INR 2.64 (0.92-1.18); PROTHROMBIN TIME 25.6 SEC (9.3-11.3)
== END 2024-12-28 09:30 | DRG 948 ==
LOC: UNDOADMIN 13:36 → CC.MS 13:36
PROVIDERS: ADMIT Nurse Practitioner; ATTEND Nurse Practitioner
DX: R53.81 Other malaise (principal); Z66 Do not resuscitate; H26.9 Unspecified cataract; E78.00 Pure hypercholesterolemia, unspecified; I10 Essential (primary) hypertension; S72.492D Other fracture of lower end of left femur, subsequent encounter for closed fracture with routine healing; J44.9 Chronic obstructive pulmonary disease, unspecified; K21.9 Gastro-esophageal reflux disease without esophagitis; Z90.49 Acquired absence of other specified parts of digestive tract; Z79.01 Long term (current) use of anticoagulants; Z90.710 Acquired absence of both cervix and uterus; Z96.649 Presence of unspecified artificial hip joint; Z79.899 Other long term (current) drug therapy; Z98.890 Other specified postprocedural states
CPT/HCPCS: 36415; 80053; 85025; 85610; 97110-GP; 97162-GP; 99306; 99315; A9270-GY